=== PATIENT | female | born 1930 | race Caucasian/White ===

== ENCOUNTER 2016-09-27 14:55 | Inpatient (IN) | payer OTHER ==
--- NOTE | 2016-09-27 15:30 | EKG Report ---
Test Performed on : 09/27/2016 3:24:42 PM Test Reason : SOB Blood Pressure : / mmHG Vent. Rate : 093 BPM Atrial Rate : 093 BPM P-R Int : 160 ms QRS Dur : 096 ms QT Int : 376 ms P-R-T Axes : 054 002 019 degrees QTc Int : 467 ms Normal sinus rhythm. Normal ECG When compared with ECG of 26-SEP-2016 18:28, (Unconfirmed) No significant change was found Unconfirmed Result
[2016-09-27 15:36] LABS: BASO% 0.4 % (0.0-0.8); EOS# 0.04 X1000 (0.0-0.7); EOS% 0.1 % (0.0-10.0); HEMATOCRIT 38.9 % (37.0-47.0); HEMOGLOBIN 12.5 g/dL (12.0-16.0); IMM GRAN# 1.96 X1000 (0.0-0.04); IMM GRAN% 7.1 % (0.0-0.5); LYMPH# 2.48 X1000 (1.2-3.4); LYMPH% 8.9 % (20.5-51.1); MANUAL DIFF NEEDED? YES; MCH 30.6 PG (27-31); MCHC 32.1 g/dL (33-37); MCV 95.3 FL (81-99); MONO# 4.81 X1000 (0.11-0.59); MONO% 17.3 % (1.7-9.3); MPV 10.6 FL (7.4-10.4); NEUT% 66.2 % (42.2-75.2); PLT 225 X1000 (130-400); RBC 4.08 XMIL (4.2-5.4)
[2016-09-27] MEDS ORDERED: ROCEPHIN 1 GM/NS 50 ML IV ONE (15:36)
[2016-09-27] MEDS ORDERED: ZITHROMAX 500 MG/NS 250 ML IV ONE (15:36)
[2016-09-27] MEDS ORDERED: NS 1,000 ML IV ONE (15:36)
[2016-09-27] MEDS ORDERED: TYLENOL PO ONE (15:36)
[2016-09-27 15:44] LABS: BANDS 2 % (0-1); LYMPHS 9 % (21-51); MONO 11 % (1-9)
--- NOTE | 2016-09-27 15:51 | PROVIDER DOCUMENTATION ---
HPI-General Adult <Marc Jackson - Last Filed: 09/27/16 16:02> - General Source: patient, EMS, other ([facility] [employer] at bedside) - History of Present Illness -Gen Adult Nature of Presenting Problems: Reports to er by EMS from [facility] with hx of Dementia with cc of abnormal labs. [facility] reports pneumonia on chest xray, elevated white blood counts adn wants further evaluation. Pt is altered unalbe to tell if normal baseline or not. Quality of Pain: reports: none Severity: reports: mild Onset/Duration: reports: this morning Timing: reports: still present Similar Symptoms Previously?: No Recently seen or treated by another doctor?: No <Radha Bedoya - Last Filed: 09/27/16 16:21> <Sandra Wren - Last Filed: 09/27/16 19:04> - General Chief Complaint: General Adult Stated Complaint: pneumonia per [facility] Time Seen by Provider: 09/27/16 15:01 Allergies/Adverse Reactions: Patient Allergies Allergy/AdvReac Type Severity Reaction Status Date / Time No Known Allergies Allergy Verified 09/12/16 07:39 Home Medications: Home Medication List Medication Instructions Recorded Confirmed Last Taken Type Atenolol 12.5 mg PO QAM 12/07/15 09/26/16 09/12/16 07:00 History Mirtazapine [Remeron] 30 mg PO HS 12/07/15 09/26/16 09/11/16 20:00 History Omeprazole [Prilosec] 20 mg PO AC 12/07/15 09/26/16 09/12/16 07:00 History Trazodone [Desyrel] 25 mg PO HS PRN 12/07/15 09/26/16 09/11/16 20:00 History Duloxetine [Cymbalta] 60 mg PO DAILY 30 Days 01/03/16 09/26/16 09/12/16 07:00 Rx Duloxetine [Cymbalta] 30 mg PO DAILY 04/03/16 09/26/16 09/07/16 History 30 Polyethylene Glycol 3350 [Miralax] 17 gm PO DAILY 04/03/16 09/26/16 09/12/16 07: 00 History Risperidone [Risperdal] 2 mg PO QHS 04/03/16 09/26/16 09/11/16 20:00 History Vits A and D/White Pet/Lanolin 99 applicatn TP PRN PRN 04/03/16 09/26/16 07:00 History [Desitin Clear Ointment] Multivits,Ca,Minerals/Iron/FA 1 each PO DAILY 06/15/16 09/26/16 09/12/16 07:00 History [Thera M Plus Tablet] Acetaminophen [Tylenol] 2 tab PO Q6H PRN PRN 09/07/16 09/26/16 Unknown History Alprazolam [Xanax] 1 mg PO TID 09/07/16 09/26/16 09/07/16 08:00 History Cholecalciferol (Vitamin D3) 2,000 unit PO DAILY 09/07/16 09/26/16 Unknown History [Vitamin D3] Hydrocodone/Acetaminophen [Mcintosh 5 - 325 tab PO BID PRN 09/26/16 09/26/16 Unknown History 5-325 Tablet] Meclizine [Antivert] 12.5 mg PO Q6HR PRN 09/26/16 09/26/16 Unknown History Nitrofurantoin Monohyd/M-Cryst 1 cap PO BID CC 09/26/16 09/26/16 Unknown History [Macrobid 100 mg Capsule] Review of Systems - Adult - REVIEW OF SYSTEMS - ADULT ROS:: limited per condition Constitutional: reports: other (Per [facility] INFILTRATES; elevated WBC) Eyes: denies: discharge, decreased vision, blurred vision Ears, Nose, Mouth & Throat: reports: no symptoms reported Cardiovascular: denies: chest pain, irregular heart rate, orthopnea, syncope Respiratory: denies: cough, shortness of breath, wheezing Gastrointestinal: denies: abdominal pain, diarrhea, nausea, vomiting Genitourinary: reports: no symptoms reported Musculoskeletal: reports: no symptoms reported Integumentary: reports: no symptoms reported Neurological: reports: no symptoms reported Psychiatric: reports: no symptoms reported Endocrine: reports: no symptoms reported Hematologic/Lymphatic: reports: no symptoms reported Allergic/Immunologic: reports: no symptoms reported All Other Systems: Reviewed and Negative <Radha Bedoya - Last Filed: 09/27/16 16:21> Past History - Adult - PAST MEDICAL HISTORY-ADULT Review of Records: reports: Nursing Assessment Review Major Childhood Illnesses: reports: denies history Cardiovascular: reports: denies history Respiratory: reports: pneumonia Gastrointestinal: reports: denies history Obstetrical/Gynecological: reports: other (breast ca) Genitourinary: reports: denies history Musculoskeletal: reports: neck/back injury Neurological: reports: CVA, dementia, TIA Psychiatric: reports: bipolar, depression Endocrine/Immune: reports: denies history Other Conditions: reports: other cancer (breast) - PRIOR SURGERIES/PROCEDURES Surgical/Procedure History: reports: appendectomy, breast, back/neck - IMMUNIZATION STATUS Childhood Immunizations: See Nurse Assessment Flu Vaccine: See Nurse Assessment <Radha Bedoya - Last Filed: 09/27/16 16:21> Physical Exam-General - PHYSICAL EXAM-ADULT Initial Vital Signs Reviewed: Yes - CONSTITUTIONAL General Appearance: appears well, alert, no apparent distress - EYES Eyes: PERRL/EOMI - HEAD, EARS, NOSE, MOUTH & THROAT HENMT: TMs normal, pharynx normal - NECK Neck: non-tender, full range of motion - RESPIRATORY Respiratory: chest non-tender, normal breath sounds, no pleuratic chest pain, no respiratory distress, no accessory muscle use, rhonchi (bilaterally) - CARDIOVASCULAR Cardiovascular: regular rate, rhythm - GASTROINTESTINAL (ABDOMEN) Abdominal Exam: normal bowel sounds, non tender, soft, no organomegaly, no pulsatile mass - MUSCULOSKELETAL Extremity: normal range of motion, non-tender - SKIN Integumentary: normal color, other (hot to touch) - PSYCHIATRIC Psych/Mental Status: other (altered) <Radha Bedoya - Last Filed: 09/27/16 16:21> Progress - CHANGE OF SHIFT REPORT (ED Provider) Report Given and Care Transferred to:: Sandra Wren PA-C Time of Transfer: 16:02 Items Pending: Labs Tentative Impression of Patient: Pneumonia <Marc Jackson - Last Filed: 09/27/16 16:02> - PLAN OF CARE/RESULTS Progress/Plan/Lab Results: Orders Category Date Time Status Saline Loc NOW Care 09/27/16 14:58 Active CHEST-2 VIEWS [RAD] Stat Exams 09/27/16 14:59 Taken BLOOD CULTURE [BLDCUL] Stat Lab 09/27/16 14:59 Ordered CBC WITH ELECTRONIC DIFF [HEME] Stat Lab 09/27/16 15:22 Completed CK PROFILE [SP CHEM] Stat Lab 09/27/16 15:22 Received COMPREHENSIVE METABOLIC PANEL [CHEM] Stat Lab 09/27/16 15:22 Received LACTATE, PLASMA [CHEM] Stat Lab 09/27/16 15:22 Received TROPONIN T Stat Lab 09/27/16 15:[address] W/POSS RFLX CULT [URINALYSIS] Stat Lab 09/27/16 15:00 Uncollected 0.9% Sodium Chloride Inj [Ns] 1,000 ml Med 09/27/16 15:36 Active IV 999 mls/hr Acetaminophen [Tylenol] Med 09/27/16 15:36 Discontinued 1,000 mg PO NOW ONE Azithromycin 500 mg/Ns [Zithromax 500 mg/Ns] 250 ml Med 09/27/16 15:36 Active IV NOW CefTRIAXONE 1 GM/NS [Rocephin 1 gm/Ns] 50 ml Med 09/27/16 15:36 Active IV NOW EKG [EKG] Stat Ther 09/27/16 14:58 Draft Vital Signs - 24 hr 09/27/16 15:14 Temperature 97.5 F L Pulse Rate 96 H Respiratory 20 Rate Blood Pressure 109/67 O2 Sat by Pulse 92 L Oximetry Laboratory Tests 09/27/16 09/27/16 09/27/16 15:22 15:22 15:22 WBC 27.75 H RBC 4.08 L Hgb 12.5 Hct 38.9 MCV 95.3 MCH 30.6 MCHC 32.1 L RDW Std Deviation 14.9 H Plt Count 225 MPV 10.6 H Immature Gran % (Auto) 7.1 H Neut % (Auto) 66.2 Lymph % (Auto) 8.9 L Lamb % (Auto) 17.3 H Eos % (Auto) 0.1 Baso % (Auto) 0.4 Immature Gran # (Auto) 1.96 H Neut # (Auto) 18.35 H Lymph # (Auto) 2.48 Lamb # (Auto) 4.81 H Eos # (Auto) 0.04 Baso # (Auto) 0.11 Segmented Neutrophils 70 Band Neutrophils 2 H Lymphocytes 9 L Monocytes 11 H Atypical Lymphocytes 8.0 Anisocytosis OCCASIONAL Sodium 142 Potassium 3.8 Chloride 102 Carbon Dioxide 28 Anion Gap 13 BUN 25 H Creatinine 1.0 H Estimated GFR/1.73 m2 52 BUN/Creatinine Ratio 25 Glucose 131 H Calculated Osmolality 289 Calcium 9.9 Total Bilirubin 0.60 AST 33 H ALT 20 Alkaline Phosphatase 213 H Creatine Kinase 126 Troponin T Total Protein 6.6 Albumin 3.7 Globulin 3.0 Albumin/Globulin Ratio 1.0 Plasma Lactate 2.0 09/27/16 15:22 WBC RBC Hgb Hct MCV MCH MCHC RDW Std Deviation Plt Count MPV Immature Gran % (Auto) Neut % (Auto) Lymph % (Auto) Lamb % (Auto) Eos % (Auto) Baso % (Auto) Immature Gran # (Auto) Neut # (Auto) Lymph # (Auto) Lamb # (Auto) Eos # (Auto) Baso # (Auto) Segmented Neutrophils Band Neutrophils Lymphocytes Monocytes Atypical Lymphocytes Anisocytosis Sodium Potassium Chloride Carbon Dioxide Anion Gap BUN Creatinine Estimated GFR/1.73 m2 BUN/Creatinine Ratio Glucose Calculated Osmolality Calcium Total Bilirubin AST ALT Alkaline Phosphatase Creatine Kinase Troponin T < 0.010 Total Protein Albumin Globulin Albumin/Globulin Ratio Plasma Lactate - EKG 1 Time of EKG reading by physician:: 15:24 EKG Read and Signed by:: Noelle Plata EKG Interpretation (*Must complete 3 of following elements*): Normal Rate: 93 Rhythm: nsr [place]: normal QRS: normal OR Interval: normal - XRAY 1 XRAY: Bilateral XRAY Study: Chest Impression: Normal XRAY Interpretation: stable <Radha Bedoya - Last Filed: 09/27/16 16:21> - PLAN OF CARE/RESULTS Progress/Plan/Lab Results: Vital Signs Temp Pulse Resp BP Pulse Ox 09/27/16 18:54 87 18 120/59 92 L 09/27/16 18:18 96 H 20 09/27/16 15:56 99.5 F 09/27/16 15:14 97.5 F L 96 H 20 109/67 92 L No Known Allergies Allergy (Verified 09/12/16 07:39) Atenolol 12.5 mg PO QAM 12/07/15 Mirtazapine [Remeron] 30 mg PO HS 12/07/15 Omeprazole [Prilosec] 20 mg PO AC 12/07/15 Trazodone [Desyrel] 25 mg PO HS PRN 12/07/15 Duloxetine [Cymbalta] 60 mg PO DAILY 30 Days 01/03/16 Duloxetine [Cymbalta] 30 mg PO DAILY 04/03/16 Polyethylene Glycol 3350 [Miralax] 17 gm PO DAILY 04/03/16 Risperidone [Risperdal] 2 mg PO QHS 04/03/16 Vits A and D/White Pet/Lanolin [Desitin Clear Ointment] 99 applicatn TP PRN PRN 04/03/16 Multivits,Ca,Minerals/Iron/FA [Thera M Plus Tablet] 1 each PO DAILY 06/15/16 Acetaminophen [Tylenol] 2 tab PO Q6H PRN PRN 09/07/16 Alprazolam [Xanax] 1 mg PO TID 09/07/16 Cholecalciferol (Vitamin D3) [Vitamin D3] 2,000 unit PO DAILY 09/07/16 Hydrocodone/Acetaminophen [Mcintosh 5-325 Tablet] 5 - 325 tab PO BID PRN 09/26/16 Meclizine [Antivert] 12.5 mg PO Q6HR PRN 09/26/16 Nitrofurantoin Monohyd/M-Cryst [Macrobid 100 mg Capsule] 1 cap PO BID CC Dietary Diet Regular Diet Start SatSep 27 1855 Laboratory 09/27/16 09/27/16 09/27/16 18:00 16:14 15:22 WBC RBC Hgb Hct MCV MCH MCHC RDW Std Deviation Plt Count MPV Immature Gran % (Auto) Neut % (Auto) Lymph % (Auto) Lamb % (Auto) Eos % (Auto) Baso % (Auto) Immature Gran # (Auto) Neut # (Auto) Lymph # (Auto) Lamb # (Auto) Eos # (Auto) Baso # (Auto) Segmented Neutrophils Band Neutrophils Lymphocytes Monocytes Atypical Lymphocytes Anisocytosis Specimen Type ARTERIAL Sample Site R BRACHIAL pH 7.48 H pCO2 39 pO2 56 L HCO3 28.7 H Base Excess 5.1 H Oxyhemoglobin 88.2 L* ABG O2 Sat (Calculated) 12.7 L ABG O2 Saturation 92.1 L ABG Carboxyhemoglobin 3.10 H ABG Methemoglobin 1.1 Manuel Test NO A-a O2 Difference 45.0 Total Hemoglobin 10.2 L Lactate 0.60 Blood Gas Modality ROOM AIR FiO2 % 21.0 Sodium Potassium Chloride Carbon Dioxide Anion Gap BUN Creatinine Estimated GFR/1.73 m2 BUN/Creatinine Ratio Glucose Calculated Osmolality Calcium Total Bilirubin AST ALT Alkaline Phosphatase Creatine Kinase Troponin T < 0.010 Total Protein Albumin Globulin Albumin/Globulin Ratio Plasma Lactate Urine Source CATH Urine Color YELLOW Urine Clarity CLEAR Urine pH 6.5 Ur Specific [place] 1.020 Urine Protein 2+(100 mg/dL) A Urine Ketones TRACE Urine Blood 2+ A Urine Nitrite NEGATIVE Urine Bilirubin NEGATIVE Urine Urobilinogen 1+(1 mg/dL) Urine Microscopic RBC <10 Urine WBC 1+ A Urine Microscopic WBC <10 Ur Epithelial Cells <10 Urine Crystals CA OXALATE PRESENT Urine Bacteria 1+ Urine Casts NONE SEEN Urine Yeast NONE SEEN Urine Glucose NEGATIVE 09/27/16 09/27/16 09/27/16 15:22 15:22 15:22 WBC 27.75 H RBC 4.08 L Hgb 12.5 Hct 38.9 MCV 95.3 MCH 30.6 MCHC 32.1 L RDW Std Deviation 14.9 H Plt Count 225 MPV 10.6 H Immature Gran % (Auto) 7.1 H Neut % (Auto) 66.2 Lymph % (Auto) 8.9 L Lamb % (Auto) 17.3 H Eos % (Auto) 0.1 Baso % (Auto) 0.4 Immature Gran # (Auto) 1.96 H Neut # (Auto) 18.35 H Lymph # (Auto) 2.48 Lamb # (Auto) 4.81 H Eos # (Auto) 0.04 Baso # (Auto) 0.11 Segmented Neutrophils 70 Band Neutrophils 2 H Lymphocytes 9 L Monocytes 11 H Atypical Lymphocytes 8.0 Anisocytosis OCCASIONAL Specimen Type Sample Site pH pCO2 pO2 HCO3 Base Excess Oxyhemoglobin ABG O2 Sat (Calculated) ABG O2 Saturation ABG Carboxyhemoglobin ABG Methemoglobin Manuel Test A-a O2 Difference Total Hemoglobin Lactate Blood Gas Modality FiO2 % Sodium 142 Potassium 3.8 Chloride 102 Carbon Dioxide 28 Anion Gap 13 BUN 25 H Creatinine 1.0 H Estimated GFR/1.73 m2 52 BUN/Creatinine Ratio 25 Glucose 131 H Calculated Osmolality 289 Calcium 9.9 Total Bilirubin 0.60 AST 33 H ALT 20 Alkaline Phosphatase 213 H Creatine Kinase 126 Troponin T Total Protein 6.6 Albumin 3.7 Globulin 3.0 Albumin/Globulin Ratio 1.0 Plasma Lactate 2.0 Urine Source Urine Color Urine Clarity Urine pH Ur Specific [place] Urine Protein Urine Ketones Urine Blood Urine Nitrite Urine Bilirubin Urine Urobilinogen Urine Microscopic RBC Urine WBC Urine Microscopic WBC Ur Epithelial Cells Urine Crystals Urine Bacteria Urine Casts Urine Yeast Urine Glucose Orders Category Date Time Status Admit - [facility] - [facility] Routine AdmDCTranf 09/27/16 18:54 Ordered Activity - Strict Bedrest ORDERED Care 09/27/16 18:54 Active Neurological Check q4h Care 09/27/16 18:54 Active Saline Loc DIRECTED Care 09/27/16 18:54 Active Saline Loc NOW Care 09/27/16 14:58 Active Vital Signs Order Q 8-HR .ASSESS Care 09/27/16 18:54 Active Regular Diet Diet 09/27/16 18:56 Active CHEST-2 VIEWS [RAD] Stat Exams 09/27/16 14:[address] THORAX W/CONTRAST [CT] Routine Exams 09/28/16 18:[address] THORAX W/CONTRAST [CT] Stat Exams 09/27/16 18:53 Ordered ABG [RESP] Routine Lab 09/27/16 18:00 Completed BLOOD CULTURE [BLDCUL] Stat Lab 09/27/16 15:22 Results CBC WITH ELECTRONIC DIFF [HEME] Routine Lab 09/28/16 07:00 Ordered CBC WITH ELECTRONIC DIFF [HEME] Stat Lab 09/27/16 15:22 Completed CK PROFILE [SP CHEM] Stat Lab 09/27/16 15:22 Completed COMPREHENSIVE METABOLIC PANEL [CHEM] Stat Lab 09/27/16 15:22 Completed LACTATE, PLASMA [CHEM] Stat Lab 09/27/16 15:22 Completed TROPONIN T Stat Lab 09/27/16 15:[address] W/POSS RFLX CULT [URINALYSIS] Stat Lab 09/27/16 16:14 Completed URINE CULTURE [RM] Routine Lab 09/27/16 17:27 Ordered 0.9% Sodium Chloride Inj [Ns] 1,000 ml Med 09/27/16 19:00 Active IV 75 mls/hr 0.9% Sodium Chloride Inj [Ns] 1,000 ml Med 09/27/16 15:36 Discontinued IV 999 mls/hr Acetaminophen [Tylenol] Med 09/27/16 15:36 Discontinued 1,000 mg PO NOW ONE Acetaminophen [Tylenol] Med 09/27/16 18:54 Active 650 mg PO Q6H PRN PRN Albuterol 2.5MG/Ipratrop 0.5MG [Duoneb (A & A)] Med 09/27/16 19:30 Active 3 ml INH RTQ4H Azithromycin 500 mg/Ns [Zithromax 500 mg/Ns] 250 ml Med 09/27/16 15:36 Discontinued IV NOW Azithromycin 500 mg/Ns [Zithromax 500 mg/Ns] 250 ml Med 09/28/16 13:00 Ordered IV Q24H Budesonide [Pulmicort] Med 09/27/16 18:03 Discontinued 0.5 mg INH NOW ONE CefTRIAXONE 1 GM/NS [Rocephin 1 gm/Ns] 50 ml Med 09/27/16 15:36 Discontinued IV NOW CefTRIAXONE 1 GM/NS [Rocephin 1 gm/Ns] 50 ml Med 09/28/16 13:00 Ordered IV Q24H Levalbuterol Neb [Xopenex Neb] Med 09/27/16 18:03 Discontinued 1.25 mg INH NOW ONE Ondansetron [Zofran] Med 09/27/16 18:54 Active 4 mg IV Q4H PRN PRN Aerosol Treatments Routine Oth 09/27/16 18:04 Completed Aerosol Treatments Routine Oth 09/27/16 18:56 Active Aerosol Treatments Stat Oth 09/27/16 18:04 Completed Aerosol Treatments Stat Oth 09/27/16 18:56 Active Oxygen Device Routine Oth 09/27/16 18:55 Active EKG [EKG] Stat Ther 09/27/16 14:58 Draft Transfer/Admit Order [TRANSFER] Routine Transfer 09/27/16 18:51 Ordered Laboratory Tests 09/27/16 09/27/16 09/27/16 15:22 15:22 15:22 WBC 27.75 H RBC 4.08 L Hgb 12.5 Hct 38.9 MCV 95.3 MCH 30.6 MCHC 32.1 L RDW Std Deviation 14.9 H Plt Count 225 MPV 10.6 H Immature Gran % (Auto) 7.1 H Neut % (Auto) 66.2 Lymph % (Auto) 8.9 L Lamb % (Auto) 17.3 H Eos % (Auto) 0.1 Baso % (Auto) 0.4 Immature Gran # (Auto) 1.96 H Neut # (Auto) 18.35 H Lymph # (Auto) 2.48 Lamb # (Auto) 4.81 H Eos # (Auto) 0.04 Baso # (Auto) 0.11 Segmented Neutrophils 70 Band Neutrophils 2 H Lymphocytes 9 L Monocytes 11 H Atypical Lymphocytes 8.0 Anisocytosis OCCASIONAL Specimen Type Sample Site pH pCO2 pO2 HCO3 Base Excess Oxyhemoglobin ABG O2 Sat (Calculated) ABG O2 Saturation ABG Carboxyhemoglobin ABG Methemoglobin Manuel Test A-a O2 Difference Total Hemoglobin Lactate Blood Gas Modality FiO2 % Sodium 142 Potassium 3.8 Chloride 102 Carbon Dioxide 28 Anion Gap 13 BUN 25 H Creatinine 1.0 H Estimated GFR/1.73 m2 52 BUN/Creatinine Ratio 25 Glucose 131 H Calculated Osmolality 289 Calcium 9.9 Total Bilirubin 0.60 AST 33 H ALT 20 Alkaline Phosphatase 213 H Creatine Kinase 126 Troponin T Total Protein 6.6 Albumin 3.7 Globulin 3.0 Albumin/Globulin Ratio 1.0 Plasma Lactate 2.0 Urine Source Urine Color Urine Clarity Urine pH Ur Specific [place] Urine Protein Urine Ketones Urine Blood Urine Nitrite Urine Bilirubin Urine Urobilinogen Urine Microscopic RBC Urine WBC Urine Microscopic WBC Ur Epithelial Cells Urine Crystals Urine Bacteria Urine Casts Urine Yeast Urine Glucose 09/27/16 09/27/16 09/27/16 15:22 16:14 18:00 WBC RBC Hgb Hct MCV MCH MCHC RDW Std Deviation Plt Count MPV Immature Gran % (Auto) Neut % (Auto) Lymph % (Auto) Lamb % (Auto) Eos % (Auto) Baso % (Auto) Immature Gran # (Auto) Neut # (Auto) Lymph # (Auto) Lamb # (Auto) Eos # (Auto) Baso # (Auto) Segmented Neutrophils Band Neutrophils Lymphocytes Monocytes Atypical Lymphocytes Anisocytosis Specimen Type ARTERIAL Sample Site R BRACHIAL pH 7.48 H pCO2 39 pO2 56 L HCO3 28.7 H Base Excess 5.1 H Oxyhemoglobin 88.2 L* ABG O2 Sat (Calculated) 12.7 L ABG O2 Saturation 92.1 L ABG Carboxyhemoglobin 3.10 H ABG Methemoglobin 1.1 Manuel Test NO A-a O2 Difference 45.0 Total Hemoglobin 10.2 L Lactate 0.60 Blood Gas Modality ROOM AIR FiO2 % 21.0 Sodium Potassium Chloride Carbon Dioxide Anion Gap BUN Creatinine Estimated GFR/1.73 m2 BUN/Creatinine Ratio Glucose Calculated Osmolality Calcium Total Bilirubin AST ALT Alkaline Phosphatase Creatine Kinase Troponin T < 0.010 Total Protein Albumin Globulin Albumin/Globulin Ratio Plasma Lactate Urine Source CATH Urine Color YELLOW Urine Clarity CLEAR Urine pH 6.5 Ur Specific [place] 1.020 Urine Protein 2+(100 mg/dL) A Urine Ketones TRACE Urine Blood 2+ A Urine Nitrite NEGATIVE Urine Bilirubin NEGATIVE Urine Urobilinogen 1+(1 mg/dL) Urine Microscopic RBC <10 Urine WBC 1+ A Urine Microscopic WBC <10 Ur Epithelial Cells <10 Urine Crystals CA OXALATE PRESENT Urine Bacteria 1+ Urine Casts NONE SEEN Urine Yeast NONE SEEN Urine Glucose NEGATIVE - CONSULTS/PCP/HOSPITALIST Notification #1 *Consult/PCP/Hospitalist*: [place] Time Discussed: 18:43 Reason/Comments: CT of chest, CBC in the AM, continue rocephin and zithromax, continue nebs Consult Disposition: Admit <Sandar Wren - Last Filed: 09/27/16 19:04> Departure <Marc Jacskon - Last Filed: 09/27/16 16:02> <Radha Bedoya - Last Filed: 09/27/16 16:21> - Departure Time of Disposition Order: 19:03 Certified Medical Emergency: Emergent <Sandra Wren - Last Filed: 09/27/16 19:04> - Departure DIAGNOSIS: Pneumonia Qualifiers: Pneumonia type: due to unspecified organism Laterality: unspecified laterality Lung location: unspecified part of lung Qualified Code(s): J18.9 - Pneumonia, unspecified organism Leukocytosis Qualifiers: Leukocytosis type: unspecified Qualified Code(s): D72.829 - Elevated white blood cell count, unspecified Disposition: ADMITTED INPATIENT 09 Condition: Stable Attestation - Scribe Verification/Attestation Scribe:: Radha Bedoya Acting as Scribe for:: Marc Jackson Scribe documention review:: This chart was documented by a scribe and accurately reflects the service the provider performed and the decisions made by the provider. <Radha Bedoya - Last Filed: 09/27/16 16:21> - Physician/ VAHID Attestation Patient care was provided by Advanced Practice Provider:: Yes Advanced Practice Provider:: Sandra Wren Advanced Practice Provider documentation review:: The Mid-level provider documentation, treatment plan and medical decision making was reviewed by the physician who agrees with all treatment and medical decision making by the MLP. <Sandra Wren - Last Filed: 09/27/16 19:04> Physician Attestation
[2016-09-27 15:52] LABS: ALBUMIN 3.7 g/dL (3.5-5.0); CALCIUM 9.9 mg/dL (8.8-10.2); POTASSIUM 3.8 mmol/L (3.5-5.1); TOTAL BILIRUBIN 0.6 mg/dL (0.20-1.00); TOTAL PROTEIN 6.6 g/dL (6.3-8.3)
--- NOTE | 2016-09-27 16:13 | Diag Imaging Result Document ---
PROCEDURE NAME: CHEST-2 VIEWS - 09/27/2016 PA AND LATERAL RADIOGRAPH OF THE CHEST: COMPARISON: 09/27/2016. FINDINGS: The trace right pleural effusion with adjacent right basilar atelectasis and/or infiltrate is unchanged. There are no new consolidations. Cardiac silhouette is stable. IMPRESSION: Stable chest.
[2016-09-27 16:33] LABS: URINE SOURCE CATH
[2016-09-27 17:14] LABS: BILIRUBIN URINE NEGATIVE (NEGATIVE); BLOOD URINE 2+ (NEGATIVE); CLARITY CLEAR (CLEAR); COLOR YELLOW; GLUCOSE URINE NEGATIVE (NEGATIVE); LEUKOCYTES URINE 1+ (NEGATIVE); NITRITE URINE NEGATIVE (NEGATIVE); PH URINE 6.5; PROTEIN URINE 2+(100 mg/dL) mg/dL (NEGATIVE); UROBILINOGEN URINE 1+(1 mg/dL)
[2016-09-27 17:26] LABS: URINE CAST NONE SEEN /LPF; URINE CRYSTAL CA OXALATE PRESENT /HPF; URINE CULTURE PL NEEDED? YES; URINE EPITHELIAL CELLS <10 /HPF (<10); URINE RBC <10 /HPF (<10); URINE WBC <10 /HPF (<10)
[2016-09-27] MEDS ORDERED: PULMICORT INH ONE (18:03)
[2016-09-27] MEDS ORDERED: XOPENEX NEB INH ONE (18:03)
[2016-09-27 18:16] LABS: BE 5.1 mmoll (-3.0-3.0); BLOOD TYPE ARTERIAL; DRAW SITE R BRACHIAL; METHB 1.1 % (0.0-1.5); O2(CT) 12.7 mL/dL (15.0-23.0); PCO2(98.6) 39 mmHg (35-45); PO2(98.6) 56 mmHg (60-100); SAMPLE BLOOD; SAO2 92.1 % (95.0-100.0); THB 10.2 g/dL (11.5-17.4); pH(98.6) 7.48 (7.35-7.45)
[2016-09-27 18:20] LABS: ALLEN TEST NO; MODALITY ROOM AIR
[2016-09-27] MEDS ORDERED: TYLENOL PO PRN (18:54)
[2016-09-27] MEDS ORDERED: ZOFRAN IV PRN (18:54)
[2016-09-27] MEDS: NS 1,000 ML IV SCH (22:18)
[2016-09-27] MEDS: DUONEB (A & A) INH SCH ×2 (23:23)
[2016-09-27] MEDS ORDERED: ZYPREXA ZYDIS PO PRN (23:26)
[2016-09-28] MEDS: DUONEB (A & A) INH SCH ×6 (03:17→23:19)
--- NOTE | 2016-09-28 04:42 | HISTORY AND PHYSICAL ---
CHIEF COMPLAINT: Worsening mentation but also leukocytosis with concern over pneumonia, failing outpatient treatment. The patient is currently a patient at [facility] with history of dementia. She had elevated white counts and concern over pneumonia for which she was transferred for further evaluation. She has been at [facility]. Looking at the notes, she has just admitted today there but in any case, she was evaluated for treatment. There was some concern over pneumonia, so she ended up being transferred to our ER for evaluation. The patient's chest x- ray showed pneumonia. He recommended Levaquin. This was on the , but she ended up being transferred to our ER for evaluation regardless. Chest x-ray here showed bibasilar infiltrates. For some reason, it looks like this had been present for several x-rays in the past. So, we progressed towards a chest CT which showed a lingular pneumonia and right basilar pneumonia. The patient is admitted for treatment. White count was very high, above 20,000 at about 25,000. PAST MEDICAL HISTORY: 1. Breast cancer. 2. History of CVA. 3. GERD. 4. Dementia, presumed Alzheimer's type. 5. Hypertension. PAST SURGICAL HISTORY: She has had a right mastectomy. SOCIAL HISTORY: No tobacco or ethanol currently. ALLERGIES: No known drug allergies. MEDICATIONS: List is being compiled. She has an extensive psychiatric history. She is on multiple medications for that. I think she has even had, it looks like ECT. REVIEW OF SYSTEMS: Was really unobtainable. Patient and really have any focal responses. She did respond to questions but she is essentially completely disoriented, although pleasant and not agitated. PHYSICAL EXAMINATION: VITAL SIGNS: Blood pressure 117/51, heart rate 78, respiratory 16, temperature 97.8 degrees, 94% on 2 L. GENERAL: A well-developed female, in no acute distress. HEAD: Normocephalic, atraumatic. EYES: Pupils equal, round, reactive to light. Extraocular movements were intact. EAR/NOSE/THROAT: She had moist mucous membranes. NECK: Supple. CARDIOVASCULAR: Regular rate and rhythm. She has a 3/6 holosystolic murmur at the left upper sternal border. PULMONARY: Rales at the bases on both sides. GI: Soft, nontender, nondistended. Bowel sounds are positive. EXTREMITIES: No clubbing or cyanosis. LYMPHATICS: No peripheral edema. NEUROLOGICAL: Nonfocal. PSYCH: Alert and oriented to name. ASSESSMENT: This is a 86-year-old female who presents from the psychiatric facility with worsening confusion, leukocytosis, bibasilar infiltrates. 1. Pneumonia, bibasilar. White count is very high at 27,000. I she is on Rocephin and Zithromax. I think it is reasonable to continue. We may need to expand her coverage just because of institutional exposure, although she just showed up to the ER. We will continue breathing treatments and follow clinically. 2. Confusion. We will monitor and continue. May have regular medications once the list is compiled. 3. Hypertension. Appears to be stable. 4. Mild dehydration. We will continue IV fluids and follow. DISPOSITION: Pending clinical improvement of her infection. We will continue to follow.
[2016-09-28 06:40] LABS: BASO% 0.5 % (0.0-0.8); EOS# 0.04 X1000 (0.0-0.7); EOS% 0.2 % (0.0-10.0); HEMATOCRIT 33.2 % (37.0-47.0); HEMOGLOBIN 10.3 g/dL (12.0-16.0); IMM GRAN# 1.99 X1000 (0.0-0.04); IMM GRAN% 9.3 % (0.0-0.5); LYMPH# 2.23 X1000 (1.2-3.4); LYMPH% 10.5 % (20.5-51.1); MANUAL DIFF NEEDED? YES; MCH 29.7 PG (27-31); MCV 95.7 FL (81-99); MONO# 3.64 X1000 (0.11-0.59); MONO% 17.1 % (1.7-9.3); MPV 10.7 FL (7.4-10.4); NEUT% 62.4 % (42.2-75.2); PLT 182 X1000 (130-400); RBC 3.47 XMIL (4.2-5.4)
[2016-09-28 06:46] LABS: AGAP 11; BUN 23 mg/dL (8-22); CHLORIDE 107 mmol/L (98-107); COSMO 290; POTASSIUM 3.8 mmol/L (3.5-5.1); SODIUM 143 mmol/L (136-145); TCO2 25 mmol/L (25-35)
[2016-09-28 07:41] LABS: LYMPHS 7 % (21-51); MONO 27 % (1-9)
[2016-09-28] MEDS ORDERED: MAXIPIME 1 GM/NS 50 ML IV SCH (08:00)
--- NOTE | 2016-09-28 08:41 | Diag Imaging Result Document ---
PROCEDURE NAME: CT THORAX W/O CONTRAST - 09/27/2016 CT THORAX WITHOUT CONTRAST: No contrast administered per request of the referring provider. A dose-reduction protocol was used. COMPARISON: 02/20/2012. FINDINGS: There is scarring at the left apex. There is progressive scarring and/or atelectasis at the anterior medial left upper lobe which is contiguous with the scarring which was present on the previous exam. There are infiltrates and atelectasis at the bilateral lower lobes. This is most prominent at the inferior right lower lobe. There are patchy hazy opacities elsewhere in the bilateral lungs. There are possibly trace bilateral pleural effusions, but there is no substantial pleural effusion identified. There is no pneumothorax seen. There are mildly prominent mediastinal lymph nodes. There is heterogeneous enlargement of the left thyroid lobe with small calcifications, similar to the previous exam. IMPRESSION: 1. Ill-defined infiltrates with atelectasis at bilateral lower lobes, most prominent on the right. The possibility of pneumonia cannot be excluded. 2. Patchy mild hazy opacities elsewhere. Apparent progressive scarring at anterior medial left upper lobe. 3. Mild mediastinal adenopathy, which may be reactive. 4. Heterogeneous enlargement of left thyroid lobe similar to the previous exam.
[2016-09-28] MEDS: NS 1,000 ML IV SCH (08:46)
[2016-09-28] MEDS: MAXIPIME 1 GM/NS 50 ML IV SCH ×2 (08:47→20:23)
[2016-09-28] MEDS ORDERED: XANAX PO ONE (15:40)
[2016-09-28] MEDS ORDERED: NS 1,000 ML IV SCH (15:43)
[2016-09-28] MEDS ORDERED: ROCEPHIN 1 GM/NS 50 ML IV SCH (16:00)
[2016-09-28] MEDS: ZITHROMAX 500 MG/NS 250 ML IV SCH (16:39)
--- NOTE | 2016-09-28 16:39 | PROGRESS NOTE ---
DATE: 09/28/2016 SUBJECTIVE: The patient has no focal complaints. OBJECTIVE: Vital Signs: Blood pressure 113/61, heart rate 107. Respiratory rate 18, temperature 98.6 degrees, 100% saturation on 2 L. Cardiovascular: Regular rate and rhythm. Pulmonary: Bilateral breath sounds. She had rhonchi and rales at the bases. GI: Soft, nontender, nondistended. Bowel sounds are positive. Extremities: No clubbing or cyanosis. Lymphatics: No peripheral edema. Neurological: Nonfocal. LABORATORY DATA: White count is down to 21,000, hemoglobin and hematocrit 10 and 33, platelets of 282,000. Chemistries: BUN and creatinine of 23 and 0.8. ASSESSMENT: 1. An 86-year-old female with pneumonia failing outpatient therapy. She is currently on cefepime and azithromycin. We will continue that, breathing treatments, and follow. 2. Dementia with altered mentation. She seems to be doing okay. We are going to try to resume her regular medications but I am waiting on the medications to be updated.
[2016-09-28] MEDS ORDERED: A & D OINTMENT TOP PRN (17:19)
[2016-09-28] MEDS: RISPERDAL PO SCH (20:22)
[2016-09-28] MEDS: REMERON PO SCH (20:23)
[2016-09-28] MEDS: XANAX PO PRN (20:23)
[2016-09-29] MEDS: DUONEB (A & A) INH SCH ×7 (03:22→23:33)
[2016-09-29] MEDS: PRILOSEC PO SCH (06:51)
[2016-09-29 06:54] LABS: HEMATOCRIT 33.4 % (37.0-47.0); HEMOGLOBIN 10.2 g/dL (12.0-16.0); MCH 29.6 PG (27-31); MCHC 30.5 g/dL (33-37); MCV 96.8 FL (81-99); MPV 10.8 FL (7.4-10.4); RBC 3.45 XMIL (4.2-5.4)
[2016-09-29 07:00] LABS: AGAP 12; BUN 16 mg/dL (8-22); CALCIUM 8.9 mg/dL (8.8-10.2); CHLORIDE 111 mmol/L (98-107); COSMO 292; POTASSIUM 3.7 mmol/L (3.5-5.1); SODIUM 146 mmol/L (136-145); TCO2 23 mmol/L (25-35)
[2016-09-29] MEDS: MAXIPIME 1 GM/NS 50 ML IV SCH ×2 (07:57→21:26)
[2016-09-29] MEDS: MIRALAX PO SCH (08:00)
[2016-09-29] MEDS: TENORMIN PO SCH (08:00)
[2016-09-29] MEDS: THERA M PLUS PO SCH (08:01)
[2016-09-29] MEDS: VITAMIN D PO SCH (08:01)
[2016-09-29] MEDS: CYMBALTA PO SCH (08:08)
[2016-09-29] MEDS ORDERED: CYMBALTA PO SCH (09:00)
[2016-09-29] MEDS ORDERED: THERA M PLUS PO SCH (09:00)
[2016-09-29] MEDS ORDERED: NS 1,000 ML IV SCH (11:30)
[2016-09-29] MEDS: XANAX PO PRN ×2 (12:06→21:26)
--- NOTE | 2016-09-29 12:42 | PROGRESS NOTE ---
DATE: 09/29/2016 SUBJECTIVE: The patient is resting quietly in bed. No complaints voiced. OBJECTIVE: Vital signs: Temperature is 99, pulse 108, respirations 22, blood pressure 158/62, saturating 91% to 93% on 2 L via nasal cannula. General: This is an 86-year- old female who is lying in the bed and answers questions appropriately. HEENT: Normocephalic and atraumatic. Pupils are equal, round and reactive to light. Extraocular movements were intact. The oropharynx and nares are clear. Neck: Supple. Lungs: Clear to auscultation bilaterally with equal lung expansion and chest wall movement. Heart: Regular rate and rhythm. No murmurs, rubs or gallops. Abdomen: Soft, nontender and nondistended. Bowel sounds are present x4 quadrants. Extremities: No cyanosis, clubbing or edema. Neurologic: Cranial nerves II through XII appear grossly intact. DIAGNOSTIC DATA: White blood cell count is 21.83, hemoglobin 10.2, hematocrit 33.4, platelets 172. Sodium is 146, potassium 3.7, chloride 111, CO2 is 23, BUN is 16, creatinine 0.8, glucose 101. ASSESSMENT AND PLAN: 1. Pneumonia with failed outpatient treatment. Her white blood cells continue to improve. We will continue her cefepime and azithromycin, breathing treatments and follow. We will recheck a CBC in the a.m. 2. Some mild dehydration. We will restart some normal saline at 50 mL an hour. Recheck CMP in the a.m. 3. Dementia with altered mentation, stable on current medication regimen. Dictated by ROGERIO Gonzalez for Tha Cisneros MD pt examined, agree with above, will change ivf to d51/2 ns and follow sodium APENOT MTDD
[2016-09-29] MEDS: D5 1/2 NS 1,000 ML IV SCH ×2 (17:16→21:26)
[2016-09-29] MEDS: ZITHROMAX 500 MG/NS 250 ML IV SCH (17:17)
[2016-09-29] MEDS: DESYREL PO PRN (21:25)
[2016-09-29] MEDS: RISPERDAL PO SCH (21:25)
[2016-09-29] MEDS: REMERON PO SCH (21:26)
[2016-09-29] MEDS: NORCO-5 PO PRN (21:26)
[2016-09-30 00:08] LABS: UR AMPHETAMINES QUAL NONE DETECTED (NONE DETECT); UR BARBITUATES QUAL NONE DETECTED (NONE DETECT); UR BENZODIAZEPIN QUAL PRESUMPTIVE POSITIVE (NONE DETECT); UR CANNABINOIDS QUAL NONE DETECTED (NONE DETECT); UR COCAINE QUAL NONE DETECTED (NONE DETECT); UR MDMA QUAL NONE DETECTED (NONE DETECT); UR METHADONE QUAL NONE DETECTED (NONE DETECT); UR METHAMPHETAMINE QUAL NONE DETECTED (NONE DETECT); UR OPIATES QUAL NONE DETECTED (NONE DETECT); UR OXYCODONE QUAL NONE DETECTED (NONE DETECT); UR PCP QUAL NONE DETECTED (NONE DETECT); UR TCA QUAL NONE DETECTED (NONE DETECT)
[2016-09-30] MEDS: DUONEB (A & A) INH SCH ×6 (02:51→23:27)
[2016-09-30] MEDS: PRILOSEC PO SCH ×2 (05:15→06:20)
[2016-09-30 06:24] LABS: BASO% 0.5 % (0.0-0.8); EOS% 0.5 % (0.0-10.0); HEMOGLOBIN 9.9 g/dL (12.0-16.0); IMM GRAN# 2.39 X1000 (0.0-0.04); IMM GRAN% 11.9 % (0.0-0.5); LYMPH# 2.51 X1000 (1.2-3.4); LYMPH% 12.5 % (20.5-51.1); MANUAL DIFF NEEDED? YES; MCHC 30.9 g/dL (33-37); MONO% 17.4 % (1.7-9.3); MPV 10.6 FL (7.4-10.4); NEUT% 57.2 % (42.2-75.2); PLT 160 X1000 (130-400)
[2016-09-30 06:34] LABS: AGAP 10; ALBUMIN 2.6 g/dL (3.5-5.0); ALKALINE PHOSPHATASE 154 U/L (32-104); BUN 11 mg/dL (8-22); CALCIUM 8.6 mg/dL (8.8-10.2); CHLORIDE 108 mmol/L (98-107); COSMO 283; GOT 20 U/L (10-30); GPT 15 U/L (10-36); POTASSIUM 3.5 mmol/L (3.5-5.1); SODIUM 142 mmol/L (136-145); TCO2 25 mmol/L (25-35); TOTAL PROTEIN 4.9 g/dL (6.3-8.3)
[2016-09-30 07:29] LABS: BANDS 4 % (0-1); LYMPHS 14 % (21-51); MONO 12 % (1-9)
[2016-09-30] MEDS: MAXIPIME 1 GM/NS 50 ML IV SCH ×2 (08:00→21:21)
[2016-09-30] MEDS: NORCO-5 PO PRN ×2 (08:59→21:21)
[2016-09-30] MEDS: THERA M PLUS PO SCH (09:00)
[2016-09-30] MEDS: TENORMIN PO SCH (10:25)
[2016-09-30] MEDS: MIRALAX PO SCH (10:26)
[2016-09-30] MEDS: CYMBALTA PO SCH (10:26)
[2016-09-30] MEDS: XANAX PO PRN ×3 (10:26→21:20)
--- NOTE | 2016-09-30 12:17 | PROGRESS NOTE ---
DATE: 09/30/2016 SUBJECTIVE: The patient has no focal complaints. OBJECTIVE: Blood pressure was 136/54, heart rate 83, respiratory rate 18, temperature 97.6, saturation 92% on 2 L. She has been around 96% to 97%. Cardiovascular: Regular rate and rhythm. Pulmonary: Decreased at the bases with rales. GI: Soft, nontender and nondistended. Bowel sounds were positive. DIAGNOSTIC DATA: White count is 20,000, hemoglobin and hematocrit of 9 and 32, platelets of 160. Chemistries are better. Sodium is down to 142. Alkaline phosphatase still up at 154, albumin 2.6. PROBLEMS: 1. Pneumonia with persistent leukocytosis. I am going to add Levaquin to her cefepime, and we will follow clinically. With her white count being persistently elevated, I think I am going to try to get an Infectious Disease consult just to evaluate everything, and then I think we need to do a hematological workup. I am going to get a peripheral smear, LDH, beta-2 microglobulin and follow in case there is a leukemoid bone marrow issue. We will repeat her white count tomorrow and follow. 2. Dementia. Fairly well controlled. She seems to be doing well. Our plan is still to go back to [facility] when she is stabilized. DISPOSITION: Clinically she looks to be doing well. Once her white count stabilizes, possibly home tomorrow.
[2016-09-30] MEDS: VITAMIN D PO SCH (13:00)
[2016-09-30] MEDS: D5 1/2 NS 1,000 ML IV SCH (13:40)
[2016-09-30] MEDS: LEVAQUIN 500 MG/D5W 100 ML IV SCH (13:42)
--- NOTE | 2016-09-30 18:30 | CONSULTATION ---
DATE OF CONSULTATION: 09/30/2016 HISTORY: The patient was unable to provide a history. No family member is present. The history was obtained by reviewing dated that was in the chart. PRESENT ILLNESS: The patient was admitted to the hospital with a bilateral pneumonia. I have been asked see the patient because she continues to have a leukocytosis. RECOMMENDATIONS: I agree with placing the patient on cefepime and Levaquin. To this I have added Zyvox. I also ordered urines for pneumococcal and legionella antigens. DISCUSSION: She is a patient at [facility]. She was admitted to the hospital. Her latest CBC shows that the white count has dropped to 20,060, hemoglobin 9.9, and platelet count 160,000. Blood and urine cultures are sterile. CT scan shows bilateral infiltrates and opacities. There is also mediastinal adenopathy, which may be reactive in nature. PAST MEDICAL HISTORY: Pneumonia, breast cancer, neck and back injuries, stroke , dementia, transit transient ischemic attacks, bipolar disorder, depression, COPD. PAST SURGICAL HISTORY: Positive for appendectomy, breast cancer, back and neck injury. HOME MEDICATIONS: Flexeril, Xanax, Tylenol, atenolol, Cymbalta, hydrocodone, minerals, vitamins, Antivert, Prilosec, nitrofurantoin, risperidone, MiraLAX, Remeron. ALLERGIES: The patient's chart lists no known drug allergies. PHYSICAL EXAMINATION: Vital Signs: Temperature is 97.6 degrees, pulse is 102, respirations 20, blood pressure 136/54. Her weight is 117 pounds. Generally: This is a chronically ill- appearing, elderly female. She is in no acute distress at this time. Head, eyes, ears, nose, and throat: She can hear my spoken words. She can see near objects. Her teeth had poor oral hygiene. Neck: No meningismus. Thorax, there was an increased AP diameter of the chest. Lungs: Clear to auscultation. Cardiovascular: Regular heart rate. Abdomen: Soft. I did not feel any masses. There was no tenderness. Neurologic: Patient is awake. She can move her extremities. Her sensation is intact to touch. She did not know her past medical history. [facility]
[2016-09-30] MEDS: RISPERDAL PO SCH (21:20)
[2016-09-30] MEDS: DESYREL PO PRN (21:20)
[2016-09-30] MEDS: ZYVOX PO SCH (21:21)
[2016-10-01] MEDS: DUONEB (A & A) INH SCH ×6 (03:39→23:32)
[2016-10-01 06:11] LABS: BASO% 0.3 % (0.0-0.8); EOS# 0.09 X1000 (0.0-0.7); EOS% 0.4 % (0.0-10.0); HEMATOCRIT 31.5 % (37.0-47.0); HEMOGLOBIN 9.7 g/dL (12.0-16.0); IMM GRAN# 1.74 X1000 (0.0-0.04); IMM GRAN% 7.5 % (0.0-0.5); LYMPH# 1.87 X1000 (1.2-3.4); MANUAL DIFF NEEDED? YES; MCHC 30.8 g/dL (33-37); MCV 97.5 FL (81-99); MONO# 3.89 X1000 (0.11-0.59); MONO% 16.7 % (1.7-9.3); MPV 10.6 FL (7.4-10.4); NEUT% 67.1 % (42.2-75.2); PLT 162 X1000 (130-400); RBC 3.23 XMIL (4.2-5.4)
[2016-10-01] MEDS: PRILOSEC PO SCH (06:14)
[2016-10-01 06:27] LABS: AGAP 8; BUN 12 mg/dL (8-22); CALCIUM 8.5 mg/dL (8.8-10.2); CHLORIDE 106 mmol/L (98-107); COSMO 279; POTASSIUM 3.9 mmol/L (3.5-5.1); SODIUM 140 mmol/L (136-145); TCO2 26 mmol/L (25-35)
[2016-10-01 06:42] LABS: BANDS 6 % (0-1); LYMPHS 8 % (21-51); MONO 16 % (1-9)
[2016-10-01] MEDS: MAXIPIME 1 GM/D5W 50 ML IV SCH ×2 (09:35→21:16)
[2016-10-01] MEDS: MIRALAX PO SCH (09:35)
[2016-10-01] MEDS: TENORMIN PO SCH (09:36)
[2016-10-01] MEDS: VITAMIN D PO SCH (09:36)
[2016-10-01] MEDS: XANAX PO PRN ×3 (09:36→20:59)
[2016-10-01] MEDS: MULTI-VITAMIN PO SCH (09:36)
[2016-10-01] MEDS: CYMBALTA PO SCH (09:36)
[2016-10-01] MEDS: ZYVOX PO SCH ×2 (09:37→20:58)
[2016-10-01] MEDS: NORCO-5 PO PRN ×2 (09:37→20:58)
[2016-10-01] MEDS: LEVAQUIN 500 MG/D5W 100 ML IV SCH (12:33)
[2016-10-01] MEDS: D5 1/2 NS 1,000 ML IV SCH (12:35)
--- NOTE | 2016-10-01 16:26 | PROGRESS NOTE ---
DATE: 10/01/2016 SUBJECTIVE: The patient has no complaints. OBJECTIVE: Vital signs: Blood pressure was , heart rate 94, respiratory rate 20, temperature 97.6 degrees, 93% on 2 L. Cardiovascular: Regular rate and rhythm. Pulmonary: Bilateral breath sounds. Clear to auscultation, somewhat diminished at the bases. GI: Soft, nontender, nondistended. Bowel sounds are positive. LABORATORY DATA: White count is up to 23, hemoglobin and hematocrit 9 and 32, platelets 162,000. Chemistries are unremarkable. PROBLEM LIST: 1. Bilateral lower lobe pneumonia with persistent leukocytosis. ID was consulted yesterday. We switched her back to Levaquin, I think she had been on that previously. She is on cefepime which she has been on. It was reordered this morning, I think she has been on it since admission so 5 days and then had been on azithromycin, Levaquin is day 2, Linezolid will be day 2. ID is following. We may need to entertain alternative diagnosis for leukocytosis. 2. Dementia appears to be well controlled on her current medications. We had a stop her Remeron and decrease her Cymbalta because of her Zyvox and concern over serotonin syndrome. 3. Disposition. Again hopefully back to [facility] when she stabilizes but with her white count being still elevated I doubt they will take her back at this point so we will continue to follow.
[2016-10-01] MEDS: DESYREL PO PRN (20:59)
[2016-10-01] MEDS: RISPERDAL PO SCH (20:59)
[2016-10-02] MEDS: DUONEB (A & A) INH SCH ×6 (03:18→23:11)
[2016-10-02 06:19] LABS: BASO% 0.5 % (0.0-0.8); EOS# 0.07 X1000 (0.0-0.7); EOS% 0.3 % (0.0-10.0); HEMATOCRIT 33.7 % (37.0-47.0); HEMOGLOBIN 10.5 g/dL (12.0-16.0); IMM GRAN# 1.64 X1000 (0.0-0.04); IMM GRAN% 6.8 % (0.0-0.5); LYMPH# 2.22 X1000 (1.2-3.4); LYMPH% 9.2 % (20.5-51.1); MANUAL DIFF NEEDED? YES; MCH 30.4 PG (27-31); MCHC 31.2 g/dL (33-37); MCV 97.7 FL (81-99); MONO# 4.24 X1000 (0.11-0.59); MONO% 17.5 % (1.7-9.3); MPV 10.9 FL (7.4-10.4); NEUT% 65.7 % (42.2-75.2); PLT 150 X1000 (130-400); RBC 3.45 XMIL (4.2-5.4)
[2016-10-02] MEDS: PRILOSEC PO SCH (06:26)
[2016-10-02 07:37] LABS: BANDS 4 % (0-1); LYMPHS 12 % (21-51); MONO 9 % (1-9)
[2016-10-02 07:44] LABS: POTASSIUM 4.5 mmol/L (3.5-5.1)
[2016-10-02] MEDS: XANAX PO PRN ×3 (08:11→20:57)
[2016-10-02] MEDS: ZYVOX PO SCH ×2 (08:11→20:57)
[2016-10-02] MEDS: MIRALAX PO SCH (08:11)
[2016-10-02] MEDS: MAXIPIME 1 GM/D5W 50 ML IV SCH ×2 (08:11→20:57)
[2016-10-02] MEDS: VITAMIN D PO SCH (08:11)
[2016-10-02] MEDS: TENORMIN PO SCH (08:11)
[2016-10-02] MEDS: MULTI-VITAMIN PO SCH (08:12)
[2016-10-02] MEDS: CYMBALTA PO SCH (08:12)
--- NOTE | 2016-10-02 11:17 | Diag Imaging Result Document ---
PROCEDURE NAME: CHEST-PORTABLE - 10/02/2016 CHEST, SINGLE VIEW: INDICATION: Pneumonia. FINDINGS: Lung volumes are further reduced. Bibasilar infiltrates have not significantly changed. Apparent increased upper lobe opacity may be related to kyphosis. Kyphotic positioning. IMPRESSION: Unchanged bibasilar infiltrates. Apparent increase in upper lobe opacity may be secondary to kyphotic positioning. Follow up recommended.
[2016-10-02] MEDS: LEVAQUIN 500 MG/D5W 100 ML IV SCH (12:59)
[2016-10-02] MEDS: D5 1/2 NS 1,000 ML IV SCH (13:00)
[2016-10-02] MEDS: RISPERDAL PO SCH (20:57)
[2016-10-02] MEDS ORDERED: AYR NASAL SPRAY NAS PRN (23:21)
[2016-10-03] MEDS: DUONEB (A & A) INH SCH ×6 (03:07→23:48)
[2016-10-03 06:31] LABS: AGAP 10; ALKALINE PHOSPHATASE 180 U/L (32-104); BUN 14 mg/dL (8-22); CALCIUM 9.5 mg/dL (8.8-10.2); CHLORIDE 102 mmol/L (98-107); COSMO 280; GOT 16 U/L (10-30); GPT 13 U/L (10-36); MAGNESIUM 1.9 mg/dL (1.5-2.7); SODIUM 140 mmol/L (136-145); TCO2 28 mmol/L (25-35); TOTAL PROTEIN 5.7 g/dL (6.3-8.3)
[2016-10-03 06:38] LABS: BASO% 0.3 % (0.0-0.8); EOS# 0.04 X1000 (0.0-0.7); EOS% 0.2 % (0.0-10.0); HEMATOCRIT 32.7 % (37.0-47.0); HEMOGLOBIN 10.2 g/dL (12.0-16.0); IMM GRAN# 1.67 X1000 (0.0-0.04); IMM GRAN% 6.5 % (0.0-0.5); LYMPH# 2.05 X1000 (1.2-3.4); MANUAL DIFF NEEDED? YES; MCH 29.9 PG (27-31); MCHC 31.2 g/dL (33-37); MCV 95.9 FL (81-99); MONO# 4.44 X1000 (0.11-0.59); MONO% 17.2 % (1.7-9.3); MPV 10.8 FL (7.4-10.4); NEUT% 67.8 % (42.2-75.2); PLT 160 X1000 (130-400); RBC 3.41 XMIL (4.2-5.4)
[2016-10-03] MEDS: MIRALAX PO SCH (08:32)
[2016-10-03] MEDS: MULTI-VITAMIN PO SCH (08:32)
[2016-10-03] MEDS: PRILOSEC PO SCH (08:32)
[2016-10-03] MEDS: VITAMIN D PO SCH (08:32)
[2016-10-03] MEDS: CYMBALTA PO SCH (08:32)
[2016-10-03] MEDS: XANAX PO PRN (08:32)
[2016-10-03] MEDS: TENORMIN PO SCH (08:32)
[2016-10-03] MEDS: MAXIPIME 1 GM/D5W 50 ML IV SCH ×2 (08:32→23:37)
[2016-10-03] MEDS: ZYVOX PO SCH ×2 (08:32→23:39)
[2016-10-03 09:07] LABS: BANDS 3 % (0-1); LYMPHS 11 % (21-51); MONO 17 % (1-9)
[2016-10-03 09:08] LABS: HYPOCHROM OCCASIONAL
--- NOTE | 2016-10-03 10:30 | PROGRESS NOTE ---
DATE: 10/03/2016 SUBJECTIVE: The patient denies any new complaints and states that she is still tired and fatigued, but denies any chest pain or palpitations. Denies any shortness of breath. OBJECTIVE: Vital Signs: Temperature 98.3, pulse 102 to 107, respiratory rate 18 and BP 98/61. General: Patient is an elderly female who is lying in the bed quietly. She appears awake and alert. She does answer questions in an attempt to follow commands. HEENT: Normocephalic, atraumatic. Neck: Supple. CV: Regular rate. Chest: Relatively clear with decreased breath sounds but equal bilaterally. Abdomen: Soft. Positive bowel sounds. Neurologic: No focal changes. DIAGNOSTIC DATA: WBCs 25, hemoglobin and hematocrit 10 and 32. CMP essentially normal. ASSESSMENT: 1. Bilateral lower lobe pneumonia. 2. Mediastinal adenopathy. 3. Leukocytosis. The patient is currently on Levaquin, Zyvox and cefepime for the past 48 hours. She has had no real change in her leukocytosis at this point. In fact, her chest x-ray yesterday appeared worse. We will continue antibiotics and recheck CT of the chest tomorrow. 4. Dementia continues to be problematic. PLAN: We will consult physical therapy. Continue to check her labs. Discussed with the daughter the perils that this could be something ominous such as lung cancer. Discussed with the daughter that this would be difficult at best to attempt any type of biopsy, and even if we had tissue diagnosis not sure that the patient at 86 would be able to undergo any type of treatment. The daughter understands and agrees with waiting.
[2016-10-03] MEDS: LEVAQUIN 500 MG/D5W 100 ML IV SCH (13:49)
[2016-10-03] MEDS ORDERED: ZYVOX ONE (23:27)
[2016-10-03] MEDS: RISPERDAL PO SCH (23:38)
[2016-10-04] MEDS: DUONEB (A & A) INH SCH ×6 (04:08→22:40)
[2016-10-04] MEDS: PRILOSEC PO SCH (06:55)
[2016-10-04 07:09] LABS: HEMATOCRIT 32.3 % (37.0-47.0); MCH 29.9 PG (27-31); MCV 96.7 FL (81-99); MPV 11.3 FL (7.4-10.4); RBC 3.34 XMIL (4.2-5.4)
[2016-10-04 07:32] LABS: AGAP 10; ALBUMIN 2.9 g/dL (3.5-5.0); ALKALINE PHOSPHATASE 176 U/L (32-104); BUN 16 mg/dL (8-22); CALCIUM 9.2 mg/dL (8.8-10.2); CHLORIDE 104 mmol/L (98-107); COSMO 284; GOT 18 U/L (10-30); GPT 12 U/L (10-36); POTASSIUM 4.1 mmol/L (3.5-5.1); SODIUM 142 mmol/L (136-145); TCO2 29 mmol/L (25-35); TOTAL PROTEIN 5.4 g/dL (6.3-8.3)
--- NOTE | 2016-10-04 07:42 | Diag Imaging Result Document ---
PROCEDURE NAME: CHEST-2 VIEWS - 10/04/2016 FRONTAL AND LATERAL CHEST, TWO VIEWS: COMPARISON: Compared to 10/02/2016. FINDINGS: The lungs are hyperexpanded. Mild increased AP diameter of the chest. The heart is not enlarged. The pulmonary vessels are small. No pleural effusions. There is cement within two midthoracic vertebrae. There is also a compression fracture to either the T12 or L1 vertebra. I believe there is a small hiatal hernia. Mild increased markings in the right base. Apparent scarring in the left apex. IMPRESSION: 1. Persistent small infiltrate or atelectasis in the right base. 2. Clearing of the atelectasis or small infiltrate in the left base. 3. There are several old compression fractures. 4. The patient may have emphysema.
[2016-10-04] MEDS: CYMBALTA PO SCH (08:34)
[2016-10-04] MEDS: TENORMIN PO SCH (08:34)
[2016-10-04] MEDS: VITAMIN D PO SCH (08:34)
[2016-10-04] MEDS: MIRALAX PO SCH (08:34)
--- NOTE | 2016-10-04 08:34 | PROGRESS NOTE ---
DATE: 10/04/2016 SUBJECTIVE: No complaints. She is lying in bed comfortably. PHYSICAL EXAMINATION: Vital Signs: Reviewed. Temperature 98.0 degrees, pulse 97 to 103, respiratory rate 18, BP 123/47, satting 97% on room air. General: The patient is a well- developed female, who is currently in no respiratory distress. She is awake, alert. Neck: Supple. CV: Regular rate. Chest: Relatively clear. Abdomen: Soft. LABS: Pending. ASSESSMENT: 1. Leukocytosis. 2. Bilateral lower lobe pneumonia, currently on Levaquin, Zyvox and cefepime. 3. Dementia. 4. Mediastinal adenopathy of undetermined significance. PLAN: We will continue physical therapy. We will continue to follow her white count. Hopefully on today's lab it will have improved. Further orders as needed.
[2016-10-04] MEDS: ZYVOX PO SCH ×2 (08:35→20:12)
[2016-10-04] MEDS: MULTI-VITAMIN PO SCH (08:35)
[2016-10-04] MEDS: MAXIPIME 1 GM/D5W 50 ML IV SCH ×2 (08:44→20:09)
[2016-10-04 11:12] LABS: INR 1.12 (0.86-1.15); PROTIME 14.7 Seconds (12.1-15.5)
[2016-10-04] MEDS: XANAX PO PRN (15:40)
[2016-10-04] MEDS: D5 1/2 NS 1,000 ML IV SCH (18:26)
[2016-10-04] MEDS: LEVAQUIN 500 MG/D5W 100 ML IV SCH (18:26)
[2016-10-04] MEDS ORDERED: MAXIPIME 1 GM/D5W 50 ML ONE (20:07)
[2016-10-04] MEDS: RISPERDAL PO SCH (20:13)
[2016-10-05] MEDS: DUONEB (A & A) INH SCH ×6 (02:47→22:59)
[2016-10-05] MEDS: PRILOSEC PO SCH (06:09)
[2016-10-05] MEDS ORDERED: NS 500 ML ONE (07:23)
--- NOTE | 2016-10-05 08:22 | PROGRESS NOTE ---
DATE: 10/05/2016 SUBJECTIVE: Patient without complaints. She is awake, alert, watching TV. Talking with her daughter, eating fine. OBJECTIVE: Vital Signs: Reviewed. Temperature 97, pulse 88, respiratory 18, BP 109/44, saturation 93% on room air. General: Patient is a well-developed, well-nourished, elderly female, who is currently in no respiratory distress. She is awake, alert, pleasant to talk with. Speech is regular. Neck: Supple. CV: Regular rate. Chest: Relatively clear. Abdomen: Soft. Extremities: Moves all extremities. Neurologic: No changes. LABS: WBCs 20, hemoglobin and hematocrit 10 and 32. Alkaline phosphatase 174, albumin 2.9. Urine Legionella negative. Urine strep pneumoniae negative. ASSESSMENT: 1. Leukocytosis. She had a mild improvement on her WBCs yesterday. Hopefully, this trend will continue. 2. Bilateral pneumonia versus mass. Will check CT on Saturday, 3 days from now. 3. Dementia, stable. 4. Adult failure to thrive. Continue physical therapy. PLAN: We will continue Levaquin, Zyvox and cefepime through the weekend. Will recheck in [address] scan. Discussed with the daughter again that this certainly could be a cancerous lesion, but given Ms. Pierre's age, certainly may not be in her best interest to be aggressive. The daughter agrees. Will plan on rehab early next week.
[2016-10-05] MEDS: MIRALAX PO SCH (09:35)
[2016-10-05] MEDS: VITAMIN D PO SCH (09:36)
[2016-10-05] MEDS: ZYVOX PO SCH ×2 (09:36→22:40)
[2016-10-05] MEDS: MULTI-VITAMIN PO SCH (09:36)
[2016-10-05] MEDS: MAXIPIME 1 GM/NS 50 ML IV SCH ×2 (09:36→20:00)
[2016-10-05] MEDS: CYMBALTA PO SCH (09:36)
[2016-10-05] MEDS: TENORMIN PO SCH (09:39)
[2016-10-05] MEDS: D5 1/2 NS 1,000 ML IV SCH (09:40)
[2016-10-05 09:57] LABS: HEMATOCRIT 31.1 % (37.0-47.0); HEMOGLOBIN 9.6 g/dL (12.0-16.0); MCH 29.8 PG (27-31); MCHC 30.9 g/dL (33-37); MCV 96.6 FL (81-99); MPV 10.9 FL (7.4-10.4); RBC 3.22 XMIL (4.2-5.4)
--- NOTE | 2016-10-05 10:41 | Diag Imaging Result Document ---
PROCEDURE NAME: CHEST-PORTABLE - 10/05/2016 PORTABLE CHEST: COMPARISON: 10/04/2016. FINDINGS: Inspiration is mildly shallow. The lateral right base is not entirely included on the image. There has been apparent decrease in mild infiltrate or atelectasis at the medial right base. There is apparent persistent small opacity at the visualized lateral right base which appears grossly stable. There is no pneumothorax seen. There is a PICC line with apparent insertion site at the distal left arm. The tip of the PICC line is located at the [id number] left arm. IMPRESSION: 1. Mildly shallow inspiration. Decrease in mild infiltrate or atelectasis at medial right base. 2. Tip of PICC line at [id number] left arm.
[2016-10-05] MEDS: LEVAQUIN 500 MG/D5W 100 ML IV SCH (11:37)
[2016-10-05] MEDS: XANAX PO PRN ×2 (15:23→19:59)
[2016-10-05] MEDS: RISPERDAL PO SCH (20:00)
[2016-10-05] MEDS: DESYREL PO PRN (22:55)
[2016-10-06] MEDS: DUONEB (A & A) INH SCH ×6 (02:49→23:09)
[2016-10-06 05:57] LABS: HEMATOCRIT 29.8 % (37.0-47.0); HEMOGLOBIN 9.2 g/dL (12.0-16.0); MCH 30.1 PG (27-31); MCHC 30.9 g/dL (33-37); MCV 97.4 FL (81-99); MPV 10.8 FL (7.4-10.4); RBC 3.06 XMIL (4.2-5.4)
[2016-10-06] MEDS: PRILOSEC PO SCH (06:28)
[2016-10-06] MEDS: MIRALAX PO SCH (08:35)
[2016-10-06] MEDS: LEVAQUIN PO SCH (08:36)
[2016-10-06] MEDS: VITAMIN D PO SCH (08:36)
[2016-10-06] MEDS: CYMBALTA PO SCH (08:36)
[2016-10-06] MEDS: MAXIPIME 1 GM/NS 50 ML IV SCH ×2 (08:36→20:57)
[2016-10-06] MEDS: MULTI-VITAMIN PO SCH (08:36)
[2016-10-06] MEDS: TENORMIN PO SCH (08:36)
[2016-10-06] MEDS: ZYVOX PO SCH ×2 (08:36→20:44)
--- NOTE | 2016-10-06 09:43 | PROGRESS NOTE ---
DATE: 10/06/2016 SUBJECTIVE: The patient notes that she is feeling much better today. She denies any chest pain, palpitations. Denies any cough and congestion. The daughter was not in the room this morning. However, yesterday the daughter noted that Ms Pierre was starting to feel better. Ms Pierre notes that she did get out of bed to the chair some yesterday. OBJECTIVE: Vital Signs Reviewed: Temperature 98.0 degrees, pulse 90, respiratory rate 18, and BP 107/45. General: Patient well developed, well nourished. Currently in no real respiratory distress. She is awake, alert, pleasant to talk with. Neck: Supple. CV: Regular rate. Chest: Relatively clear. Abdomen: Soft. Extremities: Moves all extremities. Neurologic: No changes. LABS: WBC 16, hemoglobin and hematocrit 9 and 29. ASSESSMENT: 1. Mild protein calorie malnutrition. Continue to encourage oral. 2. Leukocytosis. White blood cell count has steadily declined from 24 down to 16 this morning. 3. Bilateral pneumonia. 4. Chronic dementia. PLAN: We will continue patient on her current antibiotic regimen of Levaquin oral, Zyvox oral, and cefepime IV. This certainly seems to be improving her leukocytosis. Chest x-ray yesterday also demonstrated a very mild decrease in her infiltrate on the right base. Hopefully, this will continue to improve. Patient likely will need rehab upon discharge and would plan on this in the next 3 days.
[2016-10-06] MEDS: D5 1/2 NS 1,000 ML IV SCH (11:01)
[2016-10-06] MEDS: XANAX PO PRN ×2 (15:08→20:55)
[2016-10-06] MEDS: DESYREL PO PRN (20:44)
[2016-10-06] MEDS: RISPERDAL PO SCH (20:55)
[2016-10-07] MEDS: DUONEB (A & A) INH SCH ×6 (03:14→23:07)
[2016-10-07] MEDS: PRILOSEC PO SCH (06:10)
[2016-10-07] MEDS: VITAMIN D PO SCH (09:28)
[2016-10-07] MEDS: ZYVOX PO SCH ×2 (09:28→19:55)
[2016-10-07] MEDS: LEVAQUIN PO SCH (09:28)
[2016-10-07] MEDS: D5 1/2 NS 1,000 ML IV SCH (09:29)
[2016-10-07] MEDS: TENORMIN PO SCH (09:29)
[2016-10-07] MEDS: CYMBALTA PO SCH (09:29)
[2016-10-07] MEDS: MAXIPIME 1 GM/NS 50 ML IV SCH ×2 (09:29→20:02)
[2016-10-07] MEDS: MIRALAX PO SCH (09:29)
[2016-10-07] MEDS: MULTI-VITAMIN PO SCH (09:29)
[2016-10-07] MEDS ORDERED: LASIX PO ONE (10:07)
--- NOTE | 2016-10-07 11:17 | PROGRESS NOTE ---
DATE: 10/07/2016 SUBJECTIVE: Patient without complaints. She is lying in bed watching TV. PHYSICAL EXAMINATION: Vital Signs: Reviewed. She is afebrile. Respiratory rate 20-22, pulse 93, BP 117/50, saturation 95% on 2 L. General: The patient is a well developed, elderly female who is currently in no real respiratory distress. She is awake and alert. Neck: Supple. CV: Regular rate. Chest: Positive for breath sounds equal bilaterally. Faint crackles bilaterally. Abdomen: Soft. Extremities: Moves all extremities. LABS: No new labs today. ASSESSMENT: 1. Bilateral lower lobe pneumonia. Continue Zyvox by mouth and Levaquin by mouth. Her intravenous infiltrated and was unable to regain intravenous access. Therefore, cefepime was stopped last night. 2. Leukocytosis. Her WBC count continues to improve. Yesterday, it was down to 16. We will recheck in the morning. 3. Dementia. 4. Mild pulmonary edema, likely secondary to her bilateral pneumonia. We will add Lasix this morning. We will saline lock. She has been saline locked secondary to her intravenous infiltrating. PLAN: We will add Lasix. We will continue to monitor her oral intake. Continue Cytoxan and Levaquin p.o. We will recheck her labs in the a.m. and possibly a CT scan. Hopefully to rehab soon.
[2016-10-07] MEDS: XANAX PO PRN ×2 (14:46→19:55)
[2016-10-07] MEDS: DESYREL PO PRN (19:55)
[2016-10-07] MEDS: RISPERDAL PO SCH ×2 (19:55→20:02)
[2016-10-08] MEDS: NORCO-5 PO PRN (01:44)
[2016-10-08] MEDS: DUONEB (A & A) INH SCH ×4 (03:09→15:35)
[2016-10-08 06:20] LABS: HEMATOCRIT 29.8 % (37.0-47.0); HEMOGLOBIN 9.3 g/dL (12.0-16.0); MCH 30.2 PG (27-31); MCHC 31.2 g/dL (33-37); MCV 96.8 FL (81-99); MPV 10.5 FL (7.4-10.4); RBC 3.08 XMIL (4.2-5.4)
[2016-10-08] MEDS: PRILOSEC PO SCH (06:24)
[2016-10-08 06:57] LABS: AGAP 9; ALBUMIN 3.1 g/dL (3.5-5.0); ALKALINE PHOSPHATASE 175 U/L (32-104); BUN 18 mg/dL (8-22); CALCIUM 9.1 mg/dL (8.8-10.2); CHLORIDE 99 mmol/L (98-107); COSMO 278; GOT 13 U/L (10-30); GPT 10 U/L (10-36); POTASSIUM 3.9 mmol/L (3.5-5.1); SODIUM 138 mmol/L (136-145); TCO2 30 mmol/L (25-35)
--- NOTE | 2016-10-08 07:33 | PROGRESS NOTE ---
DATE: 10/08/2016 SUBJECTIVE: Patient without complaints. States she is feeling a little bit better. OBJECTIVE: Vital Signs: Reviewed. Temperature 98 degrees, pulse 86, respiratory rate 18, BP 108/49, saturation 96% on 2 L. General: The patient is a well-developed, well-nourished female who is currently in no respiratory distress. She is awake, alert, oriented. Neck: Supple. CV: Regular rate. Chest: Relatively clear. Abdomen: Soft. LABS: WBC 13. ASSESSMENT: 1. Bilateral lower lobe pneumonia. She currently is on Levaquin and Zyvox. Her IV infiltrated and therefore her cefepime has been discontinued. She has continued to have an improvement in her white count despite stopping cefepime. 2. Leukocytosis. Thankfully has started improving. She remained at 22 to 24 for several days and has subsequently continued to drop; currently at 13. 3. Dementia. Stable. PLAN: Hopefully patient will be able to discharge to rehab soon. We will check a CT of chest today. We will continue Zyvox and Levaquin for the next 5-7 days.
[2016-10-08] MEDS: MULTI-VITAMIN PO SCH (09:15)
[2016-10-08] MEDS: LEVAQUIN PO SCH (09:15)
[2016-10-08] MEDS: VITAMIN D PO SCH (09:15)
[2016-10-08] MEDS: ZYVOX PO SCH (09:16)
[2016-10-08] MEDS: MIRALAX PO SCH (09:16)
[2016-10-08] MEDS: TENORMIN PO SCH (09:16)
--- NOTE | 2016-10-08 09:39 | Diag Imaging Result Document ---
PROCEDURE NAME: CT THORAX W/O CONTRAST - 10/08/2016 CT THORAX WITHOUT CONTRAST: TECHNIQUE: No contrast was administered per request of the referring provider. COMPARISON: 09/27/2016. FINDINGS: There has been interval decrease in the bilateral infiltrates. There are scattered residual infiltrates and/or atelectasis, primarily at the bilateral lower lobes and posterior right upper lobe. There is scarring at the left apex. There is no pulmonary mass lesion which is distinguishable from infiltrate/atelectasis identified. There are possible trace pleural effusions again seen. There is no substantial pleural effusion or pneumothorax identified. The previously identified mildly prominent mediastinal lymph nodes are mildly less prominent on this exam. There is heterogeneous enlargement of the left thyroid lobe again noted. IMPRESSION: Decrease in bilateral infiltrates compared to prior. [facility]
[2016-10-08] MEDS: CYMBALTA PO SCH (09:49)
--- NOTE | 2016-10-08 12:25 | DISCHARGE SUMMARY ---
ADMISSION DATE: 09/27/2016 DISCHARGE DATE: 10/08/2016 ADMISSION DIAGNOSES: 1. Pneumonia bibasilar. 2. Confusion. 3. Hypertension. 4. Mild dehydration. DISCHARGE DIAGNOSES: 1. Bilateral lower lobe pneumonia. 2. Leukocytosis, improved. 3. Dementia. SUMMARY OF FINDINGS: This is an 86-year-old female with worsening mentation and leukocytosis with concern for pneumonia that failed outpatient treatment. She was initially at [facility] with a history of dementia but had elevated white count and concern over pneumonia, for which she was transferred for further evaluation. Had been admitted to [facility] on 09/27/2016 and evaluated for treatment. There was concern over pneumonia so she was transferred over to our ER for evaluation. Chest x-ray showed pneumoniae with bibasilar infiltrates. We obtained a chest CT which showed lingular pneumonia and right basilar pneumonia. Her white count on arrival to us was 27.75. So she was admitted and placed on IV antibiotics, breathing treatments, and O2. She has been slow to respond to her treatment but has been trending down with her white cells slowly and today is at 13.80. CT of the chest was obtained today that showed a decrease in bilateral infiltrates compared to her prior so she is being treated appropriately and it is felt that she can safely be discharged to rehab. DISCHARGE MEDICATIONS: Will include Tylenol 650 mg p.o. q.6 hours p.r.n., DuoNeb every 4 hours for 7 days, Xanax 1 mg p.o. 3 times a day p.r.n. [place] 5 one p.o. b.i.d. p.r.n., Levaquin 500 mg p.o. daily for 7 days, Zyvox 600 mg p.o. q.12 hours for 7 days, atenolol 12.5 mg p.o. q.a.m., vitamin D3 2000 units p.o. daily, Flexeril 5 mg p.o. q.8 hours p.r.n., Cymbalta 30 mg p.o. daily and 60 mg p.o. daily. total of 90 daily, Antivert 12.5 mg p.o. q.6 hours p.r.n., multivitamin 1 p.o. daily, Prilosec 20 mg p.o. before meals, MiraLAX 17 g p.o. daily, Risperdal 2 mg p.o. at bedtime, Desyrel 25 mg p.o. at bedtime p.r.n., Desitin ointment topically as needed. FOLLOWUP: Patient will follow up with her primary care physician once her rehab is completed. TIME SPENT: 35 minutes. Dictated by ROGERIO Gonzalez for Lee Francisco MD
[2016-10-08] MEDS: XANAX PO PRN (15:29)
[2016-10-08 15:56] VITALS: BP 110/42
--- NOTE | 2016-10-26 10:02 | DISCHARGE SUMMARY ---
ADMISSION DATE: 09/27/2016 DISCHARGE DATE: 10/08/2016 DISCHARGE SUMMARY ADDENDUM: DISCHARGE DIAGNOSIS: As noted on the discharge initially. The patient has bibasilar pneumonia. Culture did not grow anything, therefore it is impossible to determine if it was Hemophalous strep or staph.
== END 2016-10-08 17:35 | DRG 190 ==
LOC: P.ED 14:55 → P.MEDSURG 19:03
PROVIDERS: ATTEND Family Medicine
PROC: 05HC33Z Insertion of Infusion Device into Left Basilic Vein, Percutaneous Approach (ICD-10-PCS; principal; 2016-10-05)
DX: J44.0 Chronic obstructive pulmonary disease with (acute) lower respiratory infection (principal); J18.9 Pneumonia, unspecified organism; E86.0 Dehydration; G30.9 Alzheimer's disease, unspecified; E44.1 Mild protein-calorie malnutrition; F02.80 Dementia in other diseases classified elsewhere, unspecified severity, without behavioral disturbance, psychotic disturbance, mood disturbance, and anxiety; I10 Essential (primary) hypertension; K21.9 Gastro-esophageal reflux disease without esophagitis; F31.9 Bipolar disorder, unspecified; R59.0 Localized enlarged lymph nodes; R62.7 Adult failure to thrive; Z85.3 Personal history of malignant neoplasm of breast; Z86.73 Personal history of transient ischemic attack (TIA), and cerebral infarction without residual deficits; Z79.899 Other long term (current) drug therapy; Z68.20 Body mass index [BMI] 20.0-20.9, adult
CPT/HCPCS: 36415; 36569; 71010; 71020; 71250; 80048; 80053; 80305; 81001; 82232; 82550; 82805; 83605; 83615; 83735; 84075; 84080; 84443; 84484; 85025; 85027; 85610; 87040; 87088; 87801; 87899; 93005; 94640; 94761; 94799; 96361; 96365; 96367; J0456; J0692; J0696; J7030; J7040; 97110-GP; 97116-GP; 97530-GP